=== PATIENT | male | born 1960 | race Caucasian/White ===

== ENCOUNTER 2020-12-01 13:50 | Emergency (ER) | payer OTHER, SELFPAY ==
[2020-12-01 13:53] VITALS: BP 126/80; PULSE 84; RESP 14; TEMP 36.7; O2SAT 97; BMI 20.9
--- NOTE | 2020-12-01 14:28 | ED.DCSUM_ITS ---
History of Present Illness Chief Complaint: Laceration Informant: Patient Onset: Hours - Injury occurred at 1300 Context: Sudden Onset Quality: Laceration right long finger Location: Distal radial side right long finger Current Severity: Mild Maximum Severity: Moderate Worsened by: Uncertain Relieved by: Dressing Associated Symptoms: Pain Narrative: Patient is a 60-year-old [id number] male presents with laceration to the distal radial side of his right long finger. Tetanus is unknown. He denies paresthesia, anesthesia medics. Denies history of diabetes. Is on no immunosuppressive agents. He has no significant past medical history Prior similar symptoms: No Recent Illness/Hospitalization: No - Past Medical History (1) No significant past medical history Status: Acute Past Medical History - Allergies and Home Meds Allergies/Adverse Reactions: Allergies No Known Allergies Allergy (Verified 12/01/20 13:52) Primary Care Physician: NOT,DEFINED [Primary Care Provider] - Prior records reviewed: No Past Medical History: None Surgical History: no surgical history Lives: Alone Smoking Status: Never smoker Alcohol: None Review of Systems General: Denies: Chills, Fever, Malaise, Subjective Musculoskeletal: Reports: Extremity Pain. Denies: Swelling Skin: Reports: Wounds. Denies: Rash, Abscess Hematologic: Denies: Easy bruising, Easy bleeding Physical Exam Vital Signs/Narrative: Vital Signs Temp Pulse Resp BP Pulse Ox 12/01/20 13:53 98.1 F 84 14 126/80 H 97 Inital Vital Signs reviewed: Yes General: Well nourished, Well developed, No Acute Distress Head: Normocephalic, Atraumatic Eyes: Perrl, EOMI. Negative for: Pale conjunctiva Cardiovascular: Regular rate, Regular rhythm Respiratory: No distress Extremities: No edema, - - Has significant skin loss radial distal side of the right long finger. There is no exposed bone. The flexor digitorum superficialis and flexor digitorum profundus are intact. The extensor common ness tendon is intact. Capillary refill is normal.. Negative for: Nontender Skin: Normal color, Trauma Neurological: Alert, Oriented x3, Cranial nerves II-XII grossly intact, Normal Strength, Normal Sensation Psychological: Normal affect Diagnostic/Tx/Re-eval Chest X-Ray - ED: Read by ED Physician, - - View x-ray of the right long finger reveals soft tissue defect with no evidence of injury to the bone. There is no foreign body. The x-ray was interpreted by me at 1510. - Medical Decision Making Wound care and x-ray to evaluate for injury to the distal phalanx. Tetanus was updated. ED Disposition - Plan for ED Patient: Disposition: Home or Assisted Living Diagnosis: Amputation distal right long finger Instructions: ED Finger Tip Amputation Open ... Referrals: NOT,DEFINED [Primary Care Provider] - Oliverio Dominique MD [STAFF PHYSICIAN] - 2 Days for wound check Additional Instructions: You have a significant area of skin loss that you were referred to a hand/plastic surgeon for possible skin grafting. Call office today for follow- up in 24 to 48 hours. Do not remove dressing for 24 hours. Keep finger absolutely clean and dry.
[2020-12-01] MEDS: Diphth,Pertuss(Acell),Tet Vac 0.5 ML Vial IM (14:33)
--- NOTE | 2020-12-01 14:50 | RAD_ITS ---
STUDY: X-RAY - RIGHT HAND, ATTENTION THIRD FINGER REASON FOR EXAM: Male, 60 years old. Injury/Pain TECHNIQUE: 3 view(s) of the finger were obtained. COMPARISON: None. FINDINGS: Normal metacarpal head. Normal metacarpophalangeal joint. Normal proximal phalanx. Normal middle phalanx. Normal distal phalanx. Normal proximal interphalangeal joint. Normal distal interphalangeal joint. Soft tissue swelling and laceration overlying the distal phalanx of the third digit. RAD/Finger(s) Min 2 Views IMPRESSION: No fracture is seen. Diffuse soft tissue swelling and laceration of the distal portion of the third digit. Electronically Signed: Rambo Pacheco MD at 15:18 EDT , Service support ,
== END 2020-12-01 15:54 | disposition home or self-care (01) ==
PROVIDERS: Emergency Provider Emergency Medicine
DX: S61.212A Laceration without foreign body of right middle finger without damage to nail, initial encounter (principal); X58.XXXA Exposure to other specified factors, initial encounter
CPT/HCPCS: 73140; 90471; 90715; 99285